=== PATIENT | female | born 1960 | race Hispanic/Latino ===

== ENCOUNTER 2018-03-29 15:42 | Outpatient (CLI) | payer OTHER ==
[2018-03-29 16:14] LABS: #Basophils 0.1 thou/uL (0.0-0.2); #Eosinphils 0.2 thou/uL (0.0-0.7); #Lymphocytes 1.6 thou/uL (1.20-3.40); #Monocytes 0.7 thou/uL (0.11-0.59); #Neutrophils 4.5 thou/uL (1.40-6.50); %Basophils 0.8 % (0.0-1.0); %Eosinophils 2.9 % (0.0-10.0); %Lymphocytes 22.6 % (21.0-51.0); %Monocytes 10.3 % (0.0-10.0); %Neutrophils 63.3 % (42.0-75.0); Hemoglobin 12.7 g/dL (12.0-16.0); Mean Corpuscular HGB CONC 35.5 g/dL (32.0-36.0); Mean Corpuscular Hemoglobin 32.1 pg (27.0-31.0); Mean Corpuscular Volume 90.4 fl (81.0-99.0); Mean Platelet Volume 6.7 fL (7.4-10.4); Platelet Count 402 thou/uL (130-400); RBC Distribution Width 11.7 % (11.5-14.5); Red Blood Cell (RBC) Count 3.96 mill/uL (4.20-5.40); White Blood Cell (WBC) Count 7.2 thou/uL (4.8-10.8)
[2018-03-29 16:41] LABS: Anion Gap 12 mmol/L (10-20); BUN (Urea Nitrogen) 14 mg/dL (9.8-20.1); Calc. Creatinine Clearance 0 mL/min (70-130); Calcium 9.6 mg/dL (7.8-10.44); Carbon Dioxide 27 mmol/L (22-29); Chloride 100 mmol/L (98-107); Estimated GFR-MDRD Greater than 90; Glucose 115 mg/dL (70-105); Potassium 3.9 mmol/L (3.5-5.1); Sodium 135 mmol/L (136-145)
--- NOTE | 2018-03-30 20:21 | EKG ---
Test Reason : Blood Pressure : / mmHG Vent. Rate : 067 BPM Atrial Rate : 067 BPM P-R Int : 134 ms QRS Dur : 098 ms QT Int : 402 ms P-R-T Axes : 015 040 035 degrees QTc Int : 424 ms Normal sinus rhythm Normal ECG When compared with ECG of 23-MAY-2017 09:34, No significant change was found Confirmed by KAITY TREVINO, DR. Law ([id number]) on 03/30/2018 8:21:12 PM Referred By: SANDRA Confirmed By:DR. Ani BRICENO MD
== END 2018-03-29 15:43 | disposition home or self-care (01) ==
LOC: LABBT 15:42
PROVIDERS: ATTEND Orthopaedic Surgery
DX: Z01.818 Encounter for other preprocedural examination (principal); M75.102 Unspecified rotator cuff tear or rupture of left shoulder, not specified as traumatic
CPT/HCPCS: 80048; 85025; 93005; 93010

== ENCOUNTER 2018-04-06 05:30 | Day surgery (SDC) | payer OTHER ==
[2018-03-29 16:08] VITALS: BMI 45.3
[2018-04-06] MEDS ORDERED: Ropivacaine 0.2% HCl/PF 20 ML ONE (06:31)
[2018-04-06] MEDS ORDERED: Midazolam HCl 2 mg/2 ml Vial ONE ×2 (06:31→06:51)
[2018-04-06] MEDS ORDERED: Fentanyl 100 MCG/2 ML VIAL ONE ×2 (06:31→06:51)
[2018-04-06] MEDS ORDERED: Lidocaine 1% (PF) 30 ML VIAL ONE (06:31)
[2018-04-06] MEDS ORDERED: CEFAZOLIN/Water 2 GM/20 ML SYRINGE ONE (06:34)
[2018-04-06] MEDS ORDERED: traMADol HCl 50 MG TAB PO PRN ×2 (07:06)
[2018-04-06] MEDS ORDERED: Ondansetron HCl/PF 4 MG/2 ML Vial IVP PRN (07:06)
[2018-04-06] MEDS ORDERED: Ropivacaine HCl/PF 1,100 MG in Premix Bag 1 BAG NERVE BLCK SCH (07:06)
[2018-04-06] MEDS ORDERED: HYDROcodone/Acetaminophen 10/325 mg Tablet PO PRN ×2 (07:06)
[2018-04-06] MEDS ORDERED: Zolpidem Tartrate 5 MG TAB PO PRN (07:06)
[2018-04-06] MEDS ORDERED: Promethazine HCl 25 MG/ML VIAL IM PRN (07:06)
[2018-04-06] MEDS ORDERED: Fentanyl 100 MCG/2 ML VIAL IV PRN (07:07)
--- NOTE | 2018-04-06 10:21 | OP ---
DATE OF PROCEDURE: 04/06/2018 PREOPERATIVE DIAGNOSES: 1. Massive attenuated left rotator cuff tear. 2. Proximal biceps tendinosis. 3. Acromion hypertrophy. POSTOPERATIVE DIAGNOSES: 1. Massive attenuated left rotator cuff tear. 2. Proximal biceps tendinosis. 3. Acromion hypertrophy. OPERATIVE PROCEDURE: 1. Open primary repair, left massive rotator cuff (supraspinatus, infraspinatus). 2. Left proximal biceps tenodesis and acromioplasty under the rotator cuff repair (double row techni que). ANESTHESIA: General via endotracheal tube augmented with indwelling interscalene block. COMPONENTS USED: Arthrex double suture anchor x3, as well as tenodesis screw 7 x 23 [address] two 4[address] anchors. ESTIMATED BLOOD LOSS: 30 mL FINDINGS: Large massive attenuated supraspinatus and infraspinatus rotator cuff tear, minimal early arthritic changes and biceps tendinosis and hypertrophy of the acromion. DRAINS: None. SPECIMENS: None. COMPLICATIONS: None. COUNTS: Correct. INDICATIONS FOR SURGERY: Ms. Funes is a 58-year-old female who has had left shoulder pain since a fall in October. MRI demonstrated attenuated rotator cuff and she has elected to proceed w ith primary repair of the rotator cuff. PROCEDURE IN DETAIL: The patient received a preprocedural interscalene indwelling nerve block. Afte r appropriate anesthesia was obtained, the patient was positioned appropriately on the operating tabl e. Endotracheal tube was placed and secured. She was placed in a semi-beach chair position. Left s houlder and upper extremity was then prepped and draped in usual sterile fashion. Prior to incision, timeout was called and all members of surgical team agreed upon site, surgeon, and patient. She als o received preoperative antibiotics. Once this was completed, a lateral shoulder incision over the a cromioplasty extending down approximately 3 fingerbreadths below the joint line was then made inferio rly. Subcutaneous layers were dissected with Bovie electrocautery. Local bleeding was controlled wi th the Bovie. The anterior and middle deltoid raphe was identified. This was used, carried up over the acromion with Bovie electrocautery. The anterior deltoid was taken down and an acromioplasty was performed with a Leksell rongeur. A joint fluid was identified immediately upon entering the subdel toid space. A pathological bursa was identified and rongeured out and cleaned up with Bovie electroc autery. The attenuated cup was then identified and tagged with stitches and freed up with blunt fing er dissection. We were able to mobilize the cuff very well and obtain coverage. Rongeur and curetta ge was then carried along the lateral joint line of the humeral head along the old insertion. Three suture anchors were then placed laterally. Each stitch was then carefully passed in a Severo-Daljit te chnique. Biceps tendon was then identified and cut just lateral to the labrum. This was tagged and stitched appropriately and a bioabsorbable tenodesis screw was then used as an interference screw in the bicipital groove for tenodesis. Attention was then turned to tying off the stitches. They were then segregated into the posterior and inferior branches. We used 2 suture locks to perform a latera l row technique. Excess stitch was then cut. Final inspection demonstrated good put down and bone i nterface with footprint of the rotator cuff repair. The entire wound was copiously irrigated with no rmal saline. Primary muscular closure was accomplished with #1 Ethibond. The subcutaneous layer was closed with a 0 Vicryl as well as the muscular fascia. Subcutaneous layer was closed with 2-0 inter rupted inverted stitches and stainless steel misael were used to reapproximate the skin. Sterile dr essing was applied and the procedure was terminated without any complication. The patient was extuba ghazala in the operative suite and taken to recovery room in stable condition.
[2018-04-06] MEDS ORDERED: Ketorolac Tromethamine 30 MG/ML VIAL IVP SCH (12:00)
[2018-04-06] MEDS ORDERED: Ropivacaine 0.5% HCl/PF (150 MG/30 ML VIAL) ONE (14:29)
[2018-04-06] MEDS ORDERED: Ropivacaine 0.2% HCl/PF (40 MG/20 ML VIAL) ONE (14:29)
[2018-04-06] MEDS ORDERED: PHENYLEPHRINE-NS 100 MCG/ML 10 ML SYRINGE ONE (15:13)
[2018-04-06] MEDS ORDERED: Lidocaine 1% PF 5 ML VIAL ONE (15:13)
[2018-04-06] MEDS ORDERED: PROPOFOL 200 MG/20 ML VIAL ONE (15:13)
[2018-04-06] MEDS ORDERED: Ondansetron HCl/PF 4 MG/2 ML Vial ONE (15:13)
[2018-04-06] MEDS ORDERED: Glycopyrrolate 0.2 MG/ML 5 ML SYRINGE ONE (15:13)
[2018-04-06] MEDS ORDERED: Ketorolac Tromethamine 30 MG/ML VIAL ONE (15:13)
== END 2018-04-06 13:27 | disposition home or self-care (01) ==
LOC: SDC 05:30
PROVIDERS: ATTEND Orthopaedic Surgery
PROC: 0LS20ZZ Reposition Left Shoulder Tendon, Open Approach (ICD-10-PCS; principal; 2018-04-06)
PROC: 0LQ20ZZ Repair Left Shoulder Tendon, Open Approach (ICD-10-PCS; principal; 2018-04-06)
PROC: 0PB60ZZ Excision of Left Scapula, Open Approach (ICD-10-PCS; principal; 2018-04-06)
PROC: 0RHK04Z Insertion of Internal Fixation Device into Left Shoulder Joint, Open Approach (ICD-10-PCS; principal; 2018-04-06)
DX: S46.012A Strain of muscle(s) and tendon(s) of the rotator cuff of left shoulder, initial encounter (principal); M75.22 Bicipital tendinitis, left shoulder; F32.9 Major depressive disorder, single episode, unspecified; E78.2 Mixed hyperlipidemia; I10 Essential (primary) hypertension; G47.33 Obstructive sleep apnea (adult) (pediatric); R73.03 Prediabetes; E66.01 Morbid (severe) obesity due to excess calories; Z68.42 Body mass index [BMI] 45.0-49.9, adult; Z79.82 Long term (current) use of aspirin; Z79.84 Long term (current) use of oral hypoglycemic drugs; Z79.818 Long term (current) use of other agents affecting estrogen receptors and estrogen levels; Z79.899 Other long term (current) drug therapy; Z96.653 Presence of artificial knee joint, bilateral; W19.XXXA Unspecified fall, initial encounter
CPT/HCPCS: C1713; G8984-GP-CK; G8985-GP-CK; G8986-GP-CK; J1885; J2001; J2250; J2405; J2704; J2795; J3010

== ENCOUNTER 2018-12-14 15:06 | Outpatient (CLI) | payer OTHER ==
--- NOTE | 2018-12-14 16:14 | RAD ---
SACROILIAC JOINTS 3 VIEWS: Date: 12/14/18 HISTORY: Sacroiliitis. FINDINGS: Joint spaces are preserved. Minimal osteophytosis. No aggressive osseous erosions. IMPRESSION: Minimal osteoarthritis changes. No acute osseous abnormalities are demonstrated. POS: MAGGIEH
== END 2018-12-14 15:07 | disposition home or self-care (01) ==
LOC: BICRAD 15:06
PROVIDERS: ATTEND Internal Medicine Rheumatology
DX: M46.1 Sacroiliitis, not elsewhere classified (principal); M47.818 Spondylosis without myelopathy or radiculopathy, sacral and sacrococcygeal region
CPT/HCPCS: 72202

== ENCOUNTER 2020-04-08 11:02 | Outpatient (CLI) | payer OTHER ==
--- NOTE | 2020-04-08 11:52 | MMO ---
Bilateral MAMMO Bilat Screen [facility]. CLINICAL HISTORY: Patient is 60 years old and is seen for screening. The patient has the following family history of breast cancer: sister, at age 57. VIEWS: The views performed were: bilateral craniocaudal with tomosynthesis and bilateral mediolateral oblique with tomosynthesis. FILMS COMPARED: The present examination has been compared to prior imaging studies performed at [facility] on 05/03/2013, 05/15/2014 and 08/25/2015. This study has been interpreted with the assistance of computer-aided detection. MAMMOGRAM FINDINGS: There are scattered fibroglandular densities. There are benign appearing calcifications in the right breast. Left breast nodule is stable. There are no suspicious masses, suspicious calcifications, or new areas of architectural distortion. IMPRESSION: THERE IS NO MAMMOGRAPHIC EVIDENCE OF MALIGNANCY. A ROUTINE FOLLOW-UP MAMMOGRAM IN 1 YEAR IS RECOMMENDED. THE RESULTS OF THIS EXAM WERE SENT TO THE PATIENT. ACR BI-RADS Category 2 - Benign finding MAMMOGRAPHY NOTE: 1. A negative mammogram report should not delay a biopsy if a dominant of clinically suspicious mass is present. 2. Approximately 10% to 15% of breast cancers are not detected by mammography. 3. Adenosis and dense breasts may obscure an underlying neoplasm. Reported by: FELIX JOHNSON MD Electonically Signed: [id number]
== END 2020-04-08 11:03 | disposition home or self-care (01) ==
LOC: BICMAMMO 11:02
PROVIDERS: ATTEND Family Medicine
DX: Z12.31 Encounter for screening mammogram for malignant neoplasm of breast (principal); Z80.3 Family history of malignant neoplasm of breast
CPT/HCPCS: 77063; 77067

== ENCOUNTER 2022-10-07 11:52 | Outpatient (CLI) | payer BC | END 2022-10-07 11:53 | disposition home or self-care (01) | LOC: BICRAD 11:52 | PROVIDERS: ATTEND Internal Medicine Rheumatology | DX: M54.50 Low back pain, unspecified (principal); M47.816 Spondylosis without myelopathy or radiculopathy, lumbar region | CPT/HCPCS: 72110 ==

== ENCOUNTER 2023-06-23 08:12 | Outpatient (CLI) | payer BC | END 2023-06-23 08:13 | disposition home or self-care (01) | LOC: BICMAMMO 08:12 | PROVIDERS: ATTEND Family Medicine | DX: Z12.31 Encounter for screening mammogram for malignant neoplasm of breast (principal); Z80.3 Family history of malignant neoplasm of breast | CPT/HCPCS: 77063; 77067 ==

== ENCOUNTER 2023-07-27 05:29 | Day surgery (SDC) | payer BC ==
[2023-07-25 13:53] VITALS: BMI 46.5
[2023-07-27] MEDS ORDERED: Thrombin 5000 UNITS/5 ML VIAL ONE (06:11)
[2023-07-27] MEDS ORDERED: EPINEPHrine 1 MG/ML AMP ONE (06:11)
[2023-07-27] MEDS ORDERED: Bupivacaine PF 0.5% 30 ML VIAL ONE (06:11)
[2023-07-27] MEDS ORDERED: Fentanyl 250 MCG/5 ML VIAL ONE (06:15)
[2023-07-27] MEDS ORDERED: CEFAZOLIN 2 GM VIAL ONE (06:51)
[2023-07-27] MEDS ORDERED: Sodium Chloride 0.9% 100 ML ONE (06:51)
[2023-07-27] MEDS ORDERED: PROPOFOL 200 MG/20 ML VIAL ONE (07:10)
[2023-07-27] MEDS ORDERED: Ketorolac Tromethamine 30 MG/ML VIAL ONE (07:10)
[2023-07-27] MEDS ORDERED: Dexamethasone 20 MG/5 ML VIAL ONE (07:10)
[2023-07-27] MEDS ORDERED: Ondansetron PF 4 MG/2 ML Vial ONE (07:10)
[2023-07-27] MEDS ORDERED: Rocuronium Bromide 10 MG/ML (10ML VIAL) ONE (07:10)
[2023-07-27] MEDS ORDERED: Lidocaine 1% PF 5 ML VIAL ONE (07:10)
[2023-07-27 07:20] LABS: Anion Gap 13 mmol/L (10-20); BUN (Urea Nitrogen) 12 mg/dL (9.8-20.1); Calc. Creatinine Clearance 131 mL/min (70-130); Calcium 9.8 mg/dL (7.8-10.44); Carbon Dioxide 24 mmol/L (23-31); Chloride 100 mmol/L (98-107); Estimated GFR 89; Glucose 98 mg/dL (80-115); Sodium 133 mmol/L (136-145)
[2023-07-27] MEDS ORDERED: SUGAMMADEX SODIUM 200 MG/2 ML VIAL ONE (08:10)
[2023-07-27] MEDS ORDERED: fentaNYL 50 mcg/mL 1 mL Vial ONE (08:44)
[2023-07-27] MEDS ORDERED: HYDROcodone/Acetaminophen 5/325 mg Tablet ONE (10:40)
== END 2023-07-27 11:25 | disposition home or self-care (01) ==
LOC: SDC 05:29
PROVIDERS: ATTEND Neurological Surgery
PROC: 01NB0ZZ Release Lumbar Nerve, Open Approach (ICD-10-PCS; principal; 2023-07-27)
DX: M51.16 Intervertebral disc disorders with radiculopathy, lumbar region (principal); M48.062 Spinal stenosis, lumbar region with neurogenic claudication; M19.90 Unspecified osteoarthritis, unspecified site; E78.5 Hyperlipidemia, unspecified; E11.9 Type 2 diabetes mellitus without complications; I10 Essential (primary) hypertension; Z98.890 Other specified postprocedural states; Z79.84 Long term (current) use of oral hypoglycemic drugs; Z79.82 Long term (current) use of aspirin; Z79.899 Other long term (current) drug therapy
CPT/HCPCS: 80048; 93005; 93010; J0171; J1100; J1885; J2405; J2704; J3010; J3490; S0020

== ENCOUNTER 2024-09-19 10:33 | Outpatient (CLI) | payer BC | END 2024-09-19 10:34 | disposition home or self-care (01) | LOC: BICRAD 10:33 | PROVIDERS: ATTEND Orthopaedic Surgery Foot and Ankle Surgery | DX: M25.512 Pain in left shoulder (principal); M19.012 Primary osteoarthritis, left shoulder ==